=== PATIENT | male | born 1975 | race Caucasian/White ===

== ENCOUNTER 2017-10-14 13:00 | Day surgery (SDC) | payer OTHER ==
[~2017-10-14] VITALS: Ht 190.5 cm; Wt 123.0 kg
[~2017-10-14 13:00] MED LIST: Amoxicillin500 MG PO; BICILLIN; BUSP5 PO; CIPR500 PO; FLEXERIL; LYRICA; MAGCIT300 PO; METPRE4DP PO; METR500 PO; Mepron750 MG/5 M; OXYCODONE; PROBIOTIC1 EAC1; PSEU120ER PO; Percocet 5-3251 EACH PO; Prilosec Otc20 MG; VICODIN; [UNRECOGNIZED DRUG - OTHER]
[2017-10-14] MEDS ORDERED: Omeprazole20 M1 (13:12)
== END 2017-10-14 15:22 | disposition home or self-care (01) ==
LOC: ORSCSDS 13:00
DX: Z12.11 Encounter for screening for malignant neoplasm of colon (principal); K63.5 Polyp of colon; D12.3 Benign neoplasm of transverse colon; Z86.010 Personal history of colon polyps; K57.30 Diverticulosis of large intestine without perforation or abscess without bleeding; K21.9 Gastro-esophageal reflux disease without esophagitis; R13.10 Dysphagia, unspecified; E66.9 Obesity, unspecified; Z68.35 Body mass index [BMI] 35.0-35.9, adult; Z79.899 Other long term (current) drug therapy
CPT/HCPCS: 88305; J7120

== ENCOUNTER 2022-12-17 12:31 | Day surgery (SDC) | payer OTHER ==
[~2022-12-17 12:31] MED LIST changes: +Omeprazole20 M1
== END 2022-12-17 12:50 | disposition home or self-care (01) ==
LOC: ORSCSDS 12:31
DX: Z86.010 Personal history of colon polyps (principal); K21.00 Gastro-esophageal reflux disease with esophagitis, without bleeding; Z53.9 Procedure and treatment not carried out, unspecified reason
CPT/HCPCS: J7120